=== PATIENT | male | born 1990 | race Asian ===

== ENCOUNTER 2022-12-17 10:26 | Emergency (ER) | payer MEDICAID ==
[~2022-12-17] VITALS: Ht 180.3 cm; Wt 82.0 kg
[2022-12-17 10:40] VITALS: TEMP 98.4
[2022-12-17 11:09] LABS: ALCOHOL, URINE DRUG SCREEN POSITIVE (NEGATIVE); AMPHET/METH SCREEN,URINE POSITIVE (NEGATIVE); BARBITURATE SCREEN, URINE NEGATIVE (NEGATIVE); BENZODIAZEPINES SCREEN,URINE NEGATIVE (NEGATIVE); CANNABINOID SCREEN,URINE POSITIVE (NEGATIVE); COCAINE SCREEN,URINE NEGATIVE (NEGATIVE); METHADONE SCREEN, URINE NEGATIVE (NEGATIVE); OPIATE SCREEN,URINE NEGATIVE (NEGATIVE); PHENCYCLIDINE SCREEN,URINE NEGATIVE (NEGATIVE)
[2022-12-17] MEDS ORDERED: ONDANSETRON HCL 4 MG TABLET PO ONE (11:45)
[2022-12-17] MEDS ORDERED: LORazepam 1 MG TABLET PO ONE (14:15)
[2022-12-17 14:44] VITALS: BP 143/93; PULSE 75; RESP 18
== END 2022-12-17 15:05 | disposition home or self-care (01) ==
LOC: EMS 10:27
DX: F41.9 Anxiety disorder, unspecified (principal); R11.0 Nausea; F12.90 Cannabis use, unspecified, uncomplicated
CPT/HCPCS: 99283; 80307; Q0162